=== PATIENT | female | born 1990 | race American Indian/Alaskan Native ===

== ENCOUNTER 2021-10-04 11:08 | Emergency (ER) | payer MEDICAID ==
[2021-10-04 12:19] VITALS: BP 122/80
[2021-10-04 12:43] LABS: Bacteria,Urine 2+ /HPF (Negative); Mucus,Urine 3+ /HPF
[2021-10-04 12:52] LABS: HCG Qualitative,Urine Negative (Negative)
--- NOTE | 2021-10-05 10:55 | Electrocardiograph Report ---
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
== END 2021-10-04 13:26 | disposition left against medical advice (07) ==
LOC: ED 11:08
DX: R07.9 Chest pain, unspecified (principal); Z53.21 Procedure and treatment not carried out due to patient leaving prior to being seen by health care provider
CPT/HCPCS: 81015; 81025; 93005; 99283